=== PATIENT | male | born 1990 | race Caucasian/White ===

== ENCOUNTER 2021-01-26 13:55 | Emergency (ER) | payer OTHER ==
[2021-01-26 15:49] LABS: BASOPHIL 0.7 % (0-2); EOSINOPHIL 3.1 % (0-5); HCT 42.2 % (42.0-52.0); HGB 13.6 g/dl (13.2-18.0); LYMPHOCYTE 17.7 % (15-48); MCH 29.1 pg (25.0-31.0); MCHC 32.2 g/dL (32.0-36.0); MCV 90.4 fL (78.0-100.0); MONOCYTE 9.6 % (0-12); MPV 10.8 fL (6.0-9.5); NEUTROPHIL 68.4 % (41-80); NRBC 0; PLT 203 K/uL (150-400); RBC 4.67 M/uL (4.70-6.00); RDW 13.1 % (11.5-14.0); WBC 8.4 K/uL (4.0-10.5)
[2021-01-26 15:57] LABS: ALBUMIN 3.5 g/dL (3.4-5.0); BILIRUBIN - TOTAL 0.2 mg/dL (0.2-1.0); CREATININE 0.73 mg/dL (0.67-1.17); GLOBULIN (CALCULATION) 5.1 g/dL; TOTAL PROTEIN 8.6 g/dL (6.4-8.2)
[2021-01-26 16:06] LABS: BILIRUBIN NEGATIVE (NEGATIVE); BLOOD TRACE-INTACT Ery/uL (NEGATIVE); CLARITY CLEAR (CLEAR); COLOR YELLOW (YELLOW); GLUCOSE (U) NORMAL (NORMAL); LEUKOCYTES NEGATIVE Leu/uL (NEGATIVE); NITRITE NEGATIVE (NEGATIVE); PROTEIN NEGATIVE (NEGATIVE); SPECIFIC GRAVITY 1.025 (1.001-1.030); pH 6.5 (5.0-9.0)
[2021-01-26] MEDS ORDERED: PEPCID AC20 MG PO (18:12)
[2021-01-26] MEDS ORDERED: ONDANSETRON ODT4 MG PO (18:12)
== END 2021-01-26 18:45 | disposition home or self-care (01) ==
LOC: FER 13:55
PROVIDERS: Physician Assistant
DX: R10.13 Epigastric pain (principal); R11.2 Nausea with vomiting, unspecified; I47.1 Supraventricular tachycardia; F17.210 Nicotine dependence, cigarettes, uncomplicated; Z86.79 Personal history of other diseases of the circulatory system; Z88.1 Allergy status to other antibiotic agents; Z79.82 Long term (current) use of aspirin; Z79.899 Other long term (current) drug therapy; Z98.890 Other specified postprocedural states; Z88.0 Allergy status to penicillin
CPT/HCPCS: 36415; 80053; 81001; 83690; 85025; J2405; J7030; Q9967

== ENCOUNTER 2021-09-17 22:35 | Emergency (ER) | payer OTHER ==
[~2021-09-17 22:35] MED LIST: ONDANSETRON ODT4 MG PO; PEPCID AC20 MG PO
[2021-09-17 23:19] LABS: BASOPHIL 0.6 % (0-2); EOSINOPHIL 1.1 % (0-5); HCT 43.7 % (42.0-52.0); LYMPHOCYTE 15.7 % (15-48); MCV 90.7 fL (78.0-100.0); MONOCYTE 10.2 % (0-12); MPV 10.2 fL (6.0-9.5); NEUTROPHIL 71.7 % (41-80); NRBC 0; PLT 226 K/uL (150-400); RBC 4.82 M/uL (4.70-6.00); RDW 13.1 % (11.5-14.0); WBC 11.2 K/uL (4.0-10.5)
[2021-09-17 23:31] LABS: INR 1.03 (0.9-1.2); PROTHROMBIN TIME 12.9 SECONDS (11.8-13.4); PTT 30.2 SECONDS (24.4-34.7)
[2021-09-17 23:55] LABS: ALBUMIN 3.9 g/dL (3.4-5.0); BILIRUBIN - TOTAL 0.5 mg/dL (0.2-1.0); CREATININE 0.64 mg/dL (0.67-1.17); GLOBULIN (CALCULATION) 4.2 g/dL; POTASSIUM 3.9 mmol/L (3.5-5.1); TOTAL PROTEIN 8.1 g/dL (6.4-8.2)
[2021-09-18] MEDS ORDERED: ZESTRIL5 MG PO (04:02)
== END 2021-09-18 04:10 | disposition home or self-care (01) ==
LOC: FER 22:35
PROVIDERS: Emergency Medicine
DX: R07.89 Other chest pain (principal); Z79.82 Long term (current) use of aspirin
CPT/HCPCS: 36415; 71045; 80053; 84484; 85025; 85379; 85610; 85730; 93005